=== PATIENT | female | born 1950 | race Caucasian/White ===

== ENCOUNTER 2016-06-20 11:50 | Emergency (ER) | payer BC ==
[~2016-06-20 11:50] MED LIST: Iopamidol 370 76% 100 ML VIAL ONE
[2016-06-20] MEDS ORDERED: Nitroglycerin 0.4 MG TAB (25 Tab Bottle) ONE (12:16)
[2016-06-20 12:23] LABS: #Basophils 0.1 thou/uL (0.0-0.2); #Eosinphils 0.2 thou/uL (0.0-0.7); #Lymphocytes 2.3 thou/uL (1.20-3.40); #Monocytes 0.5 thou/uL (0.11-0.59); #Neutrophils 3.3 thou/uL (1.40-6.50); %Basophils 1.3 % (0.0-1.0); %Eosinophils 3.7 % (0.0-10.0); %Neutrophils 50.9 % (42.0-75.0); Hemoglobin 14.1 g/dL (12.0-16.0); Mean Corpuscular Hemoglobin 33.8 pg (27.0-31.0); Mean Corpuscular Volume 99.3 fl (81.0-99.0); Mean Platelet Volume 6.9 fL (7.4-10.4); Platelet Count 213 thou/uL (130-400); RBC Distribution Width 11.3 % (11.5-14.5); Red Blood Cell (RBC) Count 4.19 mill/uL (4.20-5.40); White Blood Cell (WBC) Count 6.5 thou/uL (4.8-10.8)
[2016-06-20 12:27] LABS: Prothrombin Time 13.1 SEC (12.0-14.7)
[2016-06-20 12:28] LABS: D-Dimer Test 0.29 *mcg/mL (0.27-0.43)
[2016-06-20] MEDS ORDERED: Mag-Al Plus 1200 MG/1200 MG/120 MG/30 ML UDCUP ONE (12:34)
[2016-06-20] MEDS ORDERED: Lidocaine Viscous Sol 2% 15 ml UD Cup ONE (12:34)
[2016-06-20 12:45] LABS: ALT (SGPT) 15 U/L (0-55); AST (SGOT) 17 U/L (5-34); Albumin 4.4 g/dL (3.4-4.8); Alkaline Phosphatase 80 U/L (40-150); Anion Gap 15 mmol/L (10-20); BUN (Urea Nitrogen) 14 mg/dL (9.8-20.1); Bilirubin, Total 0.4 mg/dL (0.2-1.2); Calc. Creatinine Clearance 0 mL/min (70-130); Calcium 10.1 mg/dL (7.8-10.44); Carbon Dioxide 23 mmol/L (23-31); Chloride 106 mmol/L (98-107); Estimated GFR-MDRD 69; Globulin 2.8 g/dL (2.4-3.5); Glucose 116 mg/dL (80-115); Potassium 3.9 mmol/L (3.5-5.1); Protein, Total 7.2 g/dL (5.8-8.1); Sodium 140 mmol/L (136-145)
[2016-06-20 12:48] LABS: Troponin I Less than 0.010 ng/mL (< 0.028)
[2016-06-20] MEDS ORDERED: Fentanyl 100 MCG/2 ML VIAL ONE (12:49)
--- NOTE | 2016-06-20 21:22 | RAD ---
PORTABLE CHEST 06/20/16 An AP portable film at 12:12 is compared with a 01/12/10 study. The heart is normal in size and the lungs are clear. There has been no adverse interval change. Ther e is no vascular congestion, edema, or pleural effusion. There is no sign of pneumonia. Lingular sca rring is seen at the cardiac apex and was present before. The trachea is midline. IMPRESSION: No acute thoracic finding. POS: HOME
--- NOTE | 2016-06-20 21:59 | CT ---
CT AORTIC DISSECTION PROTOCOL 06/20/[address] of the chest was performed after a bolus of IV contrast was given. Axial slices were acqui red, then coronal and sagittal reconstructions were done. The aorta is normal in appearance for age. There was no sign of aortic dissection or aneurysm. No gr oss coronary artery calcifications were appreciated, though there might be a little bit in the right coronary artery. Both coronary arteries fill. No pericardial effusions were seen. The celiac artery , SMA and BUSHRA all fill appropriately. The renal arteries fill appropriately and symmetrically. There is good opacification of the pulmonary arterial system. There were no defects to suggest pulmonary emboli. The lungs are clear. No acute infiltrate was seen. There is, however, a small 5 mm nodular density in the periphery of the right upper lobe on scan 18. Additionally, there may be a second nodule slig htly smaller just above it. Otherwise, the lungs are clear. No effusions are seen. The liver is slightly low density which could signify fatty infiltration. The liver and spleen are b oth normal in appearance in terms of size and lack of evidence of space occupying lesions. The pancr eas was unremarkable, as were the adrenal glands. The kidneys showed no mass or hydronephrosis. The gallbladder contains no signs of stones. IMPRESSION: 1. 5 mm nodule in the right upper lobe, non-calcified. Typically, if there is no clinical susp icion of cancer, then one would consider rescanning this patient in a 6 to 12 month timeframe. 2. No acute abdominal findings. 3. No evidence of aortic dissection or pulmonary embolism. Code LN POS: HOME
== END 2016-06-20 14:45 | disposition short-term general hospital (02) ==
LOC: BURERS 11:50
DX: R07.2 Precordial pain (principal); E78.5 Hyperlipidemia, unspecified; K21.9 Gastro-esophageal reflux disease without esophagitis; Z79.899 Other long term (current) drug therapy
CPT/HCPCS: 71010; 71275; 80053; 82553; 84484; 85025; 85379; 85610; 93005; J3010

== ENCOUNTER 2016-08-17 09:46 | Outpatient (CLI) | payer MEDICARE, BC ==
[2016-08-17 11:16] LABS: #Basophils 0.1 thou/uL (0.0-0.2); #Eosinphils 0.2 thou/uL (0.0-0.7); #Lymphocytes 1.4 thou/uL (1.20-3.40); #Monocytes 0.5 thou/uL (0.11-0.59); %Basophils 1.4 % (0.0-1.0); %Eosinophils 4.4 % (0.0-10.0); %Lymphocytes 26.6 % (21.0-51.0); %Monocytes 9.8 % (0.0-10.0); %Neutrophils 57.8 % (42.0-75.0); Hemoglobin 14.1 g/dL (12.0-16.0); Mean Corpuscular HGB CONC 34.5 g/dL (32.0-36.0); Mean Corpuscular Hemoglobin 33.9 pg (27.0-31.0); Mean Corpuscular Volume 98.3 fl (81.0-99.0); Mean Platelet Volume 7.1 fL (7.4-10.4); Platelet Count 170 thou/uL (130-400); RBC Distribution Width 11.6 % (11.5-14.5); Red Blood Cell (RBC) Count 4.15 mill/uL (4.20-5.40); White Blood Cell (WBC) Count 5.1 thou/uL (4.8-10.8)
[2016-08-17 11:30] LABS: ALT (SGPT) 16 U/L (8-55); AST (SGOT) 16 U/L (5-34); Albumin 4.3 g/dL (3.4-4.8); Alkaline Phosphatase 78 U/L (40-150); Anion Gap 14 mmol/L (10-20); BUN (Urea Nitrogen) 13 mg/dL (9.8-20.1); Bilirubin, Total 0.7 mg/dL (0.2-1.2); Calc. Creatinine Clearance 0 mL/min (70-130); Carbon Dioxide 25 mmol/L (23-31); Chloride 108 mmol/L (98-107); Cholesterol 104 mg/dl (< 200 Desired); Estimated GFR-MDRD 70; Globulin 2.4 g/dL (2.4-3.5); Glucose 124 mg/dL (80-115); HDL Cholesterol 51 mg/dL (>60 Neg Risk); LDL Cholesterol, Calculated 31 mg/dL; Potassium 4.2 mmol/L (3.5-5.1); Protein, Total 6.7 g/dL (6.0-8.3); Sodium 143 mmol/L (136-145); Triglycerides 109 mg/dL (Less than 150)
== END 2016-08-17 09:47 | disposition home or self-care (01) ==
LOC: HPCALD 09:46
PROVIDERS: ATTEND Family Medicine
DX: Z13.6 Encounter for screening for cardiovascular disorders (principal); Z13.220 Encounter for screening for lipoid disorders; E78.5 Hyperlipidemia, unspecified
CPT/HCPCS: 36415; 80053; 80061; 84443; 85025

== ENCOUNTER 2016-11-15 09:50 | Emergency (ER) | payer MEDICARE ==
[2016-11-15] MEDS ORDERED: Metoprolol Tartrate 5 MG/5 ML VIAL ONE ×2 (09:57→10:11)
[2016-11-15] MEDS ORDERED: Nitroglycerin 50 MG/250 ML BOT 250 ML ONE (09:57)
[2016-11-15] MEDS ORDERED: Ondansetron HCl/PF 4 MG/2 ML Vial ONE (10:06)
[2016-11-15 10:07] LABS: #Basophils 0.1 thou/uL (0.0-0.2); #Eosinphils 0.2 thou/uL (0.0-0.7); #Lymphocytes 2.2 thou/uL (1.20-3.40); #Monocytes 0.6 thou/uL (0.11-0.59); #Neutrophils 3.6 thou/uL (1.40-6.50); %Basophils 1.6 % (0.0-1.0); %Eosinophils 3.2 % (0.0-10.0); %Lymphocytes 33.1 % (21.0-51.0); %Monocytes 8.3 % (0.0-10.0); %Neutrophils 53.8 % (42.0-75.0); Mean Corpuscular HGB CONC 34.1 g/dL (32.0-36.0); Mean Corpuscular Hemoglobin 33.5 pg (27.0-31.0); Mean Corpuscular Volume 98.2 fl (81.0-99.0); Platelet Count 195 thou/uL (130-400); RBC Distribution Width 11.2 % (11.5-14.5); Red Blood Cell (RBC) Count 4.49 mill/uL (4.20-5.40); White Blood Cell (WBC) Count 6.8 thou/uL (4.8-10.8)
[2016-11-15 10:19] LABS: ALT (SGPT) 20 U/L (8-55); AST (SGOT) 20 U/L (5-34); Albumin 4.6 g/dL (3.4-4.8); Alkaline Phosphatase 93 U/L (40-150); Anion Gap 17 mmol/L (10-20); BUN (Urea Nitrogen) 13 mg/dL (9.8-20.1); Bilirubin, Total 0.8 mg/dL (0.2-1.2); Calc. Creatinine Clearance 0 mL/min (70-130); Calcium 9.9 mg/dL (7.8-10.44); Carbon Dioxide 23 mmol/L (23-31); Chloride 105 mmol/L (98-107); Estimated GFR-MDRD 61; Globulin 2.8 g/dL (2.4-3.5); Glucose 196 mg/dL (80-115); Lipase 38 U/L (8-78); Potassium 3.9 mmol/L (3.5-5.1); Protein, Total 7.4 g/dL (6.0-8.3); Sodium 141 mmol/L (136-145)
[2016-11-15 10:25] LABS: CKMB 1.7 ng/mL (0-6.6)
[2016-11-15] MEDS ORDERED: Fentanyl 100 MCG/2 ML VIAL ONE (10:27)
[2016-11-15] MEDS ORDERED: Enoxaparin Sodium 100 MG/ML SYRINGE ONE (11:06)
--- NOTE | 2016-11-15 15:25 | RAD ---
PORTABLE CHEST 11/15/2016 An AP portable film at 0956 hours is compared with a 06/22/2016 study from [facility]. The heart is normal in size, and the lungs are clear. No acute infiltrate or effusion was seen. Th ere is no vascular congestion or edema. The trachea is midline. IMPRESSION: Stable chest showing no acute findings. POS: HOME
== END 2016-11-15 11:56 | disposition short-term general hospital (02) ==
LOC: BURERS 09:50
DX: I24.9 Acute ischemic heart disease, unspecified (principal); E78.5 Hyperlipidemia, unspecified; K21.9 Gastro-esophageal reflux disease without esophagitis; Z79.82 Long term (current) use of aspirin; Z79.899 Other long term (current) drug therapy
CPT/HCPCS: 71010; 80053; 82553; 83690; 84484; 85025; 93005; 94760; 96365; 96366; 96372; 96375; J1650; J2405; J3010

== ENCOUNTER 2017-04-16 01:28 | Emergency (ER) | payer MEDICARE, BC ==
[2017-04-16] MEDS ORDERED: Lorazepam 2 MG/ML VIAL ONE (01:43)
[2017-04-16] MEDS ORDERED: diphenhydrAMINE 12.5 MG/5 ML UDCUP ONE (01:43)
[2017-04-16] MEDS ORDERED: diphenhydrAMINE 50 MG/ML VIAL ONE (01:44)
[2017-04-16] MEDS ORDERED: Lorazepam 0.5 MG TAB ONE (02:21)
[2017-04-16] MEDS ORDERED: diphenhydrAMINE 25 MG CAP ONE (02:21)
== END 2017-04-16 02:25 | disposition home or self-care (01) ==
LOC: BURERS 01:28
DX: T78.40XA Allergy, unspecified, initial encounter (principal); E78.5 Hyperlipidemia, unspecified; K21.9 Gastro-esophageal reflux disease without esophagitis; Z87.442 Personal history of urinary calculi; Z79.82 Long term (current) use of aspirin; Z79.899 Other long term (current) drug therapy; Z79.84 Long term (current) use of oral hypoglycemic drugs
CPT/HCPCS: 96374; 96375; J1200; J2060

== ENCOUNTER 2018-04-26 09:03 | Emergency (ER) | payer MEDICARE, BC ==
[2018-04-26 09:21] LABS: #Basophils 0.1 thou/uL (0.0-0.2); #Eosinphils 0.3 thou/uL (0.0-0.7); #Lymphocytes 1.7 thou/uL (1.20-3.40); #Monocytes 0.5 thou/uL (0.11-0.59); #Neutrophils 3.4 thou/uL (1.40-6.50); %Basophils 1.8 % (0.0-1.0); %Eosinophils 5.3 % (0.0-10.0); %Lymphocytes 27.6 % (21.0-51.0); %Monocytes 8.1 % (0.0-10.0); %Neutrophils 57.2 % (42.0-75.0); Hemoglobin 13.6 g/dL (12.0-16.0); Mean Corpuscular HGB CONC 34.4 g/dL (32.0-36.0); Mean Corpuscular Hemoglobin 33.8 pg (27.0-31.0); Mean Corpuscular Volume 98.3 fL (78.0-98.0); Mean Platelet Volume 6.8 fL (7.4-10.4); Platelet Count 170 thou/uL (130-400); RBC Distribution Width 12.1 % (11.5-14.5); Red Blood Cell (RBC) Count 4.03 mill/uL (4.20-5.40)
[2018-04-26 09:23] LABS: MDiff Complete? YES
[2018-04-26] MEDS ORDERED: Aspirin Chewable 81 MG TAB ONE (09:23)
[2018-04-26] MEDS ORDERED: Morphine 4 MG/ML VIAL ONE (09:24)
[2018-04-26 09:37] LABS: ALT (SGPT) 13 U/L (8-55); AST (SGOT) 17 U/L (5-34); Albumin 4.1 g/dL (3.4-4.8); Alkaline Phosphatase 61 U/L (40-150); Anion Gap 15 mmol/L (10-20); BUN (Urea Nitrogen) 19 mg/dL (9.8-20.1); Bilirubin, Total 0.6 mg/dL (0.2-1.2); Calc. Creatinine Clearance 0 mL/min (70-130); Calcium 9.4 mg/dL (7.8-10.44); Carbon Dioxide 20 mmol/L (23-31); Chloride 108 mmol/L (98-107); Estimated GFR-MDRD 61; Globulin 2.4 g/dL (2.4-3.5); Glucose 153 mg/dL (80-115); Potassium 4.2 mmol/L (3.5-5.1); Protein, Total 6.5 g/dL (6.0-8.3); Sodium 139 mmol/L (136-145)
[2018-04-26] MEDS ORDERED: Metoprolol Tartrate 5 MG/5 ML VIAL ONE ×3 (09:48→11:03)
[2018-04-26] MEDS ORDERED: diphenhydrAMINE 12.5 MG/5 ML UDCUP ONE (10:01)
[2018-04-26] MEDS ORDERED: diphenhydrAMINE 50 MG/ML VIAL ONE (10:02)
[2018-04-26 10:35] LABS: Clarity Clear (Clear)
[2018-04-26 10:36] LABS: Bilirubin Negative (Negative); Blood, Urine Negative (Negative); Glucose, Urine (Dipstick) Negative (Negative); Leukocyte Negative (Negative); Nitrite Negative (Negative); Protein, Urine (Dipstick) Negative (Neg-Trace); Urobilinogen 0.2 mg/dL (0.2-1.0); pH, Urine 7.5 (5.0-9.0)
--- NOTE | 2018-04-26 11:07 | RAD ---
PORTABLE CHEST: DATE: 04/26/2018. FINDINGS: An AP portable film at 0857 is compared with an 11/15/2016 study. The heart remains normal in size and the lungs are clear. No infiltrate or effusion was seen. There has been no adverse interval change. IMPRESSION: No acute findings. POS: HOME
--- NOTE | 2018-04-26 11:12 | CT ---
CT OF THE BRAIN WITHOUT CONTRAST: DATE: 04/26/2018. FINDINGS: The ventricles are normal in size with no shift. No intracranial bleeding, mass, or sign of acute st roke was found. Small acute strokes would probably e seen by MRI. The brain parenchyma was unremark able for age. The calvarium appears normal. The visible paranasal sinuses and mastoid air cells are clear. IMPRESSION: No acute intracranial finding. POS: HOME
== END 2018-04-26 11:41 | disposition short-term general hospital (02) ==
LOC: BURERS 09:03
DX: R07.89 Other chest pain (principal); R20.2 Paresthesia of skin; E78.5 Hyperlipidemia, unspecified; I25.2 Old myocardial infarction; E11.9 Type 2 diabetes mellitus without complications; Z79.82 Long term (current) use of aspirin; Z79.899 Other long term (current) drug therapy
CPT/HCPCS: 70450; 71045; 80053; 81003; 83880; 84484; 85025; 93005; 94760; 96374; 96375; 96376; J1200; J2270; Q0163

== ENCOUNTER 2018-12-18 09:33 | Emergency (ER) | payer MEDICARE, BC ==
[2018-12-18] MEDS ORDERED: Nitroglycerin 0.4 MG TAB 1 EACH ONE (09:46)
[2018-12-18] MEDS ORDERED: diphenhydrAMINE 50 MG/ML VIAL ONE (09:50)
[2018-12-18] MEDS ORDERED: Aspirin Chewable 81 MG TAB ONE (09:50)
[2018-12-18 09:57] LABS: #Basophils 0.1 thou/uL (0.0-0.2); #Eosinphils 0.2 thou/uL (0.0-0.7); #Lymphocytes 1.6 thou/uL (1.20-3.40); #Monocytes 0.4 thou/uL (0.11-0.59); #Neutrophils 3.1 thou/uL (1.40-6.50); %Basophils 1.1 % (0.0-1.0); %Eosinophils 4.4 % (0.0-10.0); %Monocytes 7.9 % (0.0-10.0); %Neutrophils 57.5 % (42.0-75.0); Hemoglobin 13.5 g/dL (12.0-16.0); Mean Corpuscular HGB CONC 33.3 g/dL (32.0-36.0); Mean Corpuscular Hemoglobin 32.7 pg (27.0-31.0); Mean Corpuscular Volume 98.2 fL (78.0-98.0); Mean Platelet Volume 6.3 fL (7.4-10.4); Platelet Count 161 thou/uL (130-400); RBC Distribution Width 11.5 % (11.5-14.5); Red Blood Cell (RBC) Count 4.12 mill/uL (4.20-5.40); White Blood Cell (WBC) Count 5.3 thou/uL (4.8-10.8)
[2018-12-18] MEDS ORDERED: Morphine 4 MG/ML VIAL ONE (10:13)
[2018-12-18 10:14] LABS: ALT (SGPT) 10 U/L (8-55); AST (SGOT) 13 U/L (5-34); Albumin 4.2 g/dL (3.4-4.8); Alkaline Phosphatase 57 U/L (40-110); Anion Gap 14 mmol/L (10-20); BUN (Urea Nitrogen) 14 mg/dL (9.8-20.1); Bilirubin, Total 0.6 mg/dL (0.2-1.2); Calc. Creatinine Clearance 0 mL/min (70-130); Calcium 9.7 mg/dL (7.8-10.44); Carbon Dioxide 25 mmol/L (23-31); Chloride 108 mmol/L (98-107); Estimated GFR-MDRD 67; Globulin 2.4 g/dL (2.4-3.5); Glucose 102 mg/dL (80-115); Potassium 3.9 mmol/L (3.5-5.1); Protein, Total 6.6 g/dL (6.0-8.3); Sodium 143 mmol/L (136-145)
[2018-12-18] MEDS ORDERED: Ondansetron PF 4 MG/2 ML Vial ONE (10:44)
[2018-12-18 12:48] LABS: Troponin I Less than 0.010 ng/mL (< 0.028)
--- NOTE | 2018-12-18 17:48 | RAD ---
PORTABLE CHEST: 12/18/18 Comparison is made with the 04/26/18 study. The heart is normal in size and the lungs are clear. No inf iltrate or effusion was seen. There is no vascular congestion or edema. The mediastinum appears daniel l. IMPRESSION: Stable exam showing no acute findings. POS: HOME
== END 2018-12-18 13:23 | disposition short-term general hospital (02) ==
LOC: BURERS 09:33
DX: R07.89 Other chest pain (principal); I25.2 Old myocardial infarction; E78.5 Hyperlipidemia, unspecified; K21.9 Gastro-esophageal reflux disease without esophagitis; E11.9 Type 2 diabetes mellitus without complications; Z79.82 Long term (current) use of aspirin; Z79.899 Other long term (current) drug therapy
CPT/HCPCS: 71045; 80053; 84484; 85025; 85379; 93005; 94760; 96365; 96366; 96368; 96375; J1200; J2270; J2405

== ENCOUNTER 2019-06-10 17:08 | Emergency (ER) | payer MEDICARE, BC ==
--- NOTE | 2019-06-10 19:10 | CT ---
CT OF THE BRAIN WITHOUT CONTRAST: 06/10/[address] shows normal sized ventricles with no shift. No intracranial bleeding or extra-axial hematoma was seen. The skull appears intact. The sphenoid sinus and visible paranasal sinuses are cl ear. IMPRESSION: No acute intracranial findings. POS: HOME
--- NOTE | 2019-06-10 19:18 | RAD ---
LEFT SHOULDER THREE VIEWS: 06/10/19 No fracture, dislocation or AC joint widening was seen. IMPRESSION: No acute finding. POS: HOME
--- NOTE | 2019-06-10 19:18 | CT ---
CT OF THE CERVICAL SPINE 06/10/[address] of the cervical spine was performed following trauma. Axial slices were acquired, followed by coronal and sagittal reconstructions. No fracture or dislocation was seen at any cervical level. The C1 to dens distance is normal and the soft tissues are normal in thickness. Disc space narrowing is present at C5-C6 and C6-C7. There is lo ss of the normal cervical lordosis. Findings by level follows: C1-C2: No acute findings. C2-C3: No acute findings. Mild left foraminal stenosis. Facet arthritis, particularly on the left. C3-C4: No acute findings C4-C5: Moderate right foraminal stenosis due to osteophytes. C5-C6: Moderate right foraminal stenosis and severe left foraminal stenosis due to osteophytes. C6-C7: Moderate bilateral foraminal stenosis. C7-T1: No acute findings. T1-T2: No acute findings. Nodules or cysts are suggested in the right lobe of the thyroid gland, some measuring up to 1.2 cm in size. An elective ultrasound is recommended. There may be a very mild central bulge of the C4-C5 disc. A disc osteophyte complex is seen at C5-C6, more left eccentric, which may slightly narrow the lateral recess. Findings are similar at C6-C7. IMPRESSION: 1. Loss of normal cervical lordosis, possibly due to spasm. No fractures. Severe DJD is noted. 2. Possible thyroid nodules or cysts. Elective ultrasound needed. Findings discussed with Dr Martinez @ [id number] on 06/10/2019. POS: HOME
--- NOTE | 2019-06-10 19:19 | RAD ---
LEFT KNEE FOUR VIEWS: 06/10/19 There may be a small joint effusion, but no fracture was seen. Mild medial joint space narrowing and osteophytes are present. IMPRESSION: No acute bony finding. POS: HOME
--- NOTE | 2019-06-10 19:19 | RAD ---
LEFT HIP TWO VIEWS: 06/10/19 No fracture was seen. The joint space was normal in width. The adjacent pubic ring appears intact. IMPRESSION: No acute findings. POS: HOME
== END 2019-06-10 18:30 | disposition home or self-care (01) ==
LOC: BURERS 17:08
DX: S40.012A Contusion of left shoulder, initial encounter (principal); S70.02XA Contusion of left hip, initial encounter; S80.02XA Contusion of left knee, initial encounter; I25.2 Old myocardial infarction; E78.5 Hyperlipidemia, unspecified; K21.9 Gastro-esophageal reflux disease without esophagitis; E11.9 Type 2 diabetes mellitus without complications; Z79.82 Long term (current) use of aspirin; Z79.899 Other long term (current) drug therapy; Z79.84 Long term (current) use of oral hypoglycemic drugs; W17.89XA Other fall from one level to another, initial encounter
CPT/HCPCS: 70450; 72125; L0120

== ENCOUNTER 2020-12-27 10:03 | Emergency (ER) | payer BC, MEDICARE ==
[2020-12-27] MEDS ORDERED: Iopamidol 370 76% 100 ML VIAL ONE (10:17)
[2020-12-27 10:25] LABS: #Eosinphils 0.3 thou/uL (0.0-0.7); #Lymphocytes 1.4 thou/uL (1.20-3.40); #Monocytes 0.4 thou/uL (0.11-0.59); #Neutrophils 3.1 thou/uL (1.40-6.50); %Basophils 0.8 % (0.0-1.0); %Eosinophils 4.9 % (0.0-10.0); %Lymphocytes 26.3 % (21.0-51.0); %Monocytes 8.6 % (0.0-10.0); %Neutrophils 59.4 % (42.0-75.0); Hemoglobin 13.3 g/dL (12.0-16.0); Mean Corpuscular HGB CONC 33.1 g/dL (32.0-36.0); Mean Corpuscular Hemoglobin 34.1 pg (27.0-31.0); Mean Platelet Volume 6.7 fL (7.4-10.4); Platelet Count 170 thou/uL (130-400); RBC Distribution Width 11.8 % (11.5-14.5); Red Blood Cell (RBC) Count 3.91 mill/uL (4.20-5.40); White Blood Cell (WBC) Count 5.1 thou/uL (4.8-10.8)
[2020-12-27] MEDS ORDERED: Ondansetron PF 4 MG/2 ML Vial ONE (10:27)
[2020-12-27] MEDS ORDERED: Morphine 4 MG/ML VIAL ONE (10:27)
[2020-12-27 10:36] LABS: CKMB 1.6 ng/mL (0-6.6)
[2020-12-27 10:37] LABS: ALT (SGPT) 11 U/L (8-55); AST (SGOT) 14 U/L (5-34); Albumin 4.1 g/dL (3.4-4.8); Alkaline Phosphatase 60 U/L (40-110); Anion Gap 13 mmol/L (10-20); BUN (Urea Nitrogen) 14 mg/dL (9.8-20.1); Bilirubin, Total 0.6 mg/dL (0.2-1.2); Calc. Creatinine Clearance 0 mL/min (70-130); Calcium 9.6 mg/dL (7.8-10.44); Carbon Dioxide 27 mmol/L (23-31); Chloride 108 mmol/L (98-107); Globulin 2.6 g/dL (2.4-3.5); Glucose 126 mg/dL (80-115); Protein, Total 6.7 g/dL (5.8-8.1); Sodium 144 mmol/L (136-145)
[2020-12-27 10:42] LABS: MDiff Complete? YES; Macrocytosis SLIGHT = 6-15 cells (100X) (0-5/hpf); Platelet Morphology Comment Appears Adequate
[2020-12-27] MEDS ORDERED: Tetracaine 0.5% PF 4 ML BOT ONE (10:48)
[2020-12-27] MEDS ORDERED: Fluorescein Opthalmic Strip ONE (10:57)
[2020-12-27] MEDS ORDERED: Aspirin Chewable 81 MG TAB ONE (11:55)
[2020-12-27] MEDS ORDERED: traMADol HCl 50 MG TAB ONE (13:44)
[2020-12-27 15:23] LABS: Troponin I Less than 0.010 ng/mL (< 0.028)
== END 2020-12-27 15:45 | disposition short-term general hospital (02) ==
LOC: BURERS 10:03
DX: R20.2 Paresthesia of skin (principal); R07.9 Chest pain, unspecified; E04.1 Nontoxic single thyroid nodule; I25.2 Old myocardial infarction; E78.5 Hyperlipidemia, unspecified; K21.9 Gastro-esophageal reflux disease without esophagitis; E11.9 Type 2 diabetes mellitus without complications
CPT/HCPCS: 36415; 70496; 70498; 71045; 80053; 82553; 84484; 85025; 93005; 96374; 96375; J2270; J2405; Q9967

== ENCOUNTER 2022-06-28 12:14 | Emergency (ER) | payer MEDICARE ==
[2022-06-28 12:36] LABS: #Basophils 0.1 thou/uL (0.0-0.2); #Eosinphils 0.1 thou/uL (0.0-0.7); #Lymphocytes 1.4 thou/uL (1.20-3.40); #Monocytes 0.4 thou/uL (0.11-0.59); #Neutrophils 5.1 thou/uL (1.40-6.50); %Basophils 0.8 % (0.0-1.0); %Eosinophils 1.8 % (0.0-10.0); %Monocytes 5.1 % (0.0-10.0); %Neutrophils 72.4 % (42.0-75.0); Hemoglobin 13.9 g/dL (12.0-16.0); Mean Corpuscular HGB CONC 33.4 g/dL (32.0-36.0); Mean Corpuscular Hemoglobin 33.4 pg (27.0-31.0); Mean Corpuscular Volume 99.9 fl (78.0-98.0); Mean Platelet Volume 6.9 fL (7.4-10.4); Platelet Count 183 10x3/uL (130-400); RBC Distribution Width 11.4 % (11.5-14.5); Red Blood Cell (RBC) Count 4.15 mill/uL (4.20-5.40)
[2022-06-28 12:51] LABS: ALT (SGPT) 13 U/L (8-55); AST (SGOT) 15 U/L (5-34); Albumin 4.3 g/dL (3.4-4.8); Alkaline Phosphatase 66 U/L (40-110); Anion Gap 14 mmol/L (10-20); BUN (Urea Nitrogen) 13 mg/dL (9.8-20.1); Bilirubin, Total 0.5 mg/dL (0.2-1.2); Calc. Creatinine Clearance 0 mL/min (70-130); Calcium 9.3 mg/dL (7.8-10.44); Carbon Dioxide 21 mmol/L (23-31); Chloride 107 mmol/L (98-107); Estimated GFR 82; Globulin 2.5 g/dL (2.4-3.5); Glucose 161 mg/dL (80-115); Lipase 29 U/L (8-78); Potassium 3.9 mmol/L (3.5-5.1); Protein, Total 6.8 g/dL (5.8-8.1); Sodium 138 mmol/L (136-145)
[2022-06-28] MEDS ORDERED: Promethazine HCl 25 MG/ML VIAL ONE (12:52)
[2022-06-28] MEDS ORDERED: Fentanyl 100 MCG/2 ML VIAL ONE (12:52)
[2022-06-28 13:05] LABS: Bilirubin Negative (Negative); Blood, Urine Large (Negative); Clarity Cloudy (Clear); Glucose, Urine (Dipstick) Negative (Negative); Ketone, Urine Trace mg/dL (Negative); Leukocyte Negative (Negative); Nitrite Negative (Negative); Protein, Urine (Dipstick) Negative (Neg-Trace); Urobilinogen 0.2 mg/dL (Less than 2); pH, Urine 8.5 (5.0-9.0)
[2022-06-28 13:15] LABS: RBC/HPF Greater than 50 HPF (0-3); Squamous Epithelial 0-3 HPF (0-3); WBC/HPF 0-3 HPF (0-3)
[2022-06-28 13:16] LABS: Bacteria/HPF Rare-Few HPF (None Seen)
[2022-06-28] MEDS ORDERED: Ketorolac Tromethamine 30 MG/ML VIAL ONE (13:55)
== END 2022-06-28 15:01 | disposition home or self-care (01) ==
LOC: BURERS 12:14
DX: N13.2 Hydronephrosis with renal and ureteral calculous obstruction (principal); E78.5 Hyperlipidemia, unspecified; K21.9 Gastro-esophageal reflux disease without esophagitis; E11.9 Type 2 diabetes mellitus without complications; Z79.82 Long term (current) use of aspirin; Z79.899 Other long term (current) drug therapy
CPT/HCPCS: 74176; 80053; 81003; 81015; 83605; 83690; 83880; 84484; 85025; 93005; 96374; 96375; J1885; J2550; J3010

== ENCOUNTER 2024-01-23 13:41 | Emergency (ER) | payer MEDICARE ==
[2024-01-23] MEDS ORDERED: Ondansetron PF 4 MG/2 ML Vial ONE (13:50)
[2024-01-23] MEDS ORDERED: Morphine 4 MG/ML VIAL ONE (13:50)
[2024-01-23 14:05] LABS: #Basophils 0.1 thou/uL (0.0-0.2); #Eosinophils 0.2 thou/uL (0.0-0.7); #Lymphocytes 1.6 thou/uL (1.20-3.40); #Monocytes 0.4 thou/uL (0.11-0.59); #Neutrophils 3.9 thou/uL (1.40-6.50); %Basophils 0.9 % (0.0-1.0); %Eosinophils 3.5 % (0.0-10.0); %Lymphocytes 25.4 % (21.0-51.0); %Monocytes 7.1 % (0.0-10.0); %Neutrophils 63.1 % (42.0-75.0); Hematocrit 45.1 % (36.0-47.0); Hemoglobin 14.8 g/dL (12.0-16.0); Mean Corpuscular HGB CONC 32.7 g/dL (32.0-36.0); Mean Corpuscular Hemoglobin 33.1 pg (27.0-31.0); Mean Platelet Volume 6.2 fL (7.4-10.4); Platelet Count 203 10x3/uL (130-400); RBC Distribution Width 11.7 % (11.5-14.5); Red Blood Cell (RBC) Count 4.46 mill/uL (4.20-5.40); White Blood Cell (WBC) Count 6.3 10x3/uL (4.8-10.8)
[2024-01-23 14:17] LABS: ALT (SGPT) 22 U/L (8-55); AST (SGOT) 20 U/L (5-34); Albumin 4.2 g/dL (3.4-4.8); Alkaline Phosphatase 77 U/L (40-110); Anion Gap 13 mmol/L (10-20); BUN (Urea Nitrogen) 14 mg/dL (9.8-20.1); Bilirubin, Total 0.5 mg/dL (0.2-1.2); Calc. Creatinine Clearance 0 mL/min (70-130); Carbon Dioxide 25 mmol/L (23-31); Chloride 107 mmol/L (98-107); Estimated GFR 64; Globulin 2.8 g/dL (2.4-3.5); Glucose 212 mg/dL (83-110); Lipase 61 U/L (8-78); Potassium 3.8 mmol/L (3.5-5.1); Sodium 141 mmol/L (136-145)
[2024-01-23 14:18] LABS: Bilirubin Negative (Negative); Blood, Urine Negative (Negative); Clarity Clear (Clear); Glucose, Urine (Dipstick) 500 mg/dL (Negative); Ketone, Urine Negative (Negative); Leukocyte Negative (Negative); Nitrite Negative (Negative); Protein, Urine (Dipstick) Negative (Neg-Trace); Urobilinogen 0.2 mg/dL (Less than 2); pH, Urine 5.5 (5.0-9.0)
[2024-01-23 14:21] LABS: Specific Gravity, Urine 1.013 (1.002-1.036)
[2024-01-23 14:41] LABS: Bacteria/HPF None Seen HPF (None Seen); CAUTI Indications for Culture Dysuria,urgency,freq; RBC/HPF 0-3 HPF (0-3); Squamous Epithelial None Seen HPF (0-3); WBC/HPF 0-3 HPF (0-3)
[2024-01-23 14:42] LABS: Urine Culture Reflex No No
[2024-01-23] MEDS ORDERED: HYDROcodone/Acetaminophen 5/325 mg Tablet ONE (15:57)
== END 2024-01-23 16:22 | disposition home or self-care (01) ==
LOC: BURERS 13:41
DX: R10.30 Lower abdominal pain, unspecified (principal); E11.9 Type 2 diabetes mellitus without complications; I25.2 Old myocardial infarction; K21.9 Gastro-esophageal reflux disease without esophagitis; Z95.5 Presence of coronary angioplasty implant and graft
CPT/HCPCS: 74177; 80053; 81001; 83605; 83690; 85025; 96374; 96375; 99284; J2272; J2405; Q9967